=== PATIENT | female | born 1995 | race Asian ===

== ENCOUNTER 2020-11-13 12:01 | Emergency (ER) | payer OTHER ==
[~2020-11-13] VITALS: Ht 172.7 cm; Wt 81.8 kg
[2020-11-13 12:04] VITALS: BP 138/81
== END 2020-11-13 13:29 | disposition home or self-care (01) ==
LOC: EDUNIT# 12:01 → EMS 12:07
DX: K59.00 Constipation, unspecified (principal); Z88.0 Allergy status to penicillin
CPT/HCPCS: 99283